=== PATIENT | male | born 1985 | race Hispanic/Latino ===

== ENCOUNTER → 2024-11-05 10:57 | Outpatient (CLI) | payer OTHER, SELFPAY ==
--- NOTE | 2024-11-05 11:02 | DI.RAD.S_ITS ---
PROCEDURE: XR CERVICAL SPINE 4V OR 5V INDICATIONS: neck pain, BL upper limb pain/paresthesia TECHNIQUE: 5 views of the cervical spine acquired. COMPARISON: [facility], MR, MR CERVICAL SPINE WO CON, 11/05/2024, 11:22. FINDINGS: Bones: No fractures or dislocations to the T1 level. Mild degenerative changes are seen. This is demonstrable by small vertebral body osteophytes and endplate sclerosis. Oblique images demonstrate no bony foraminal stenoses. Soft tissues: No prevertebral soft tissue swelling. IMPRESSION: Mild degenerative changes are seen. Dictated by: Esequiel Mckeon M.D. on 11/05/2024 at 22:02 Approved by: Esequiel Mckeon M.D. on 11/05/2024 at 22:04
--- NOTE | 2024-11-05 11:02 | DI.MRI.S_ITS ---
PROCEDURE: MR CERVICAL SPINE WO CON INDICATIONS: neck pain, BL upper limb pain/paresthesia TECHNIQUE: Noncontrast sagittal T1 spin echo and T2 fast spin echo, sagittal STIR, foraminal oblique sagittal T2 fast spin echo, and axial gradient echo or T2 fast spin echo through the cervical spine. COMPARISON: [facility], CR, XR CERVICAL SPINE 4V OR 5V, 11/05/2024, 11:09. FINDINGS: Image quality: Excellent. Alignment and Curvature: Straightening of the normal cervical lordosis. Bone Marrow: Marrow demonstrates normal overall signal. Spinal Cord: Visualized spinal cord has normal size and signal. No cerebellar tonsillar herniation. Paraspinous Soft Tissues: No paravertebral masses. Prevertebral soft tissues are normal in thickness. C2-C3: Normal appearance. C3-C4: Normal appearance. C4-C5: Disc desiccation and mild posterior disc osteophyte complex. Mild facet uncovertebral arthropathy. No significant central canal stenosis. Mild left and no right neural foraminal stenosis. C5-C6: Disc desiccation and mild posterior disc osteophyte complex. Facet uncovertebral arthropathy. No significant central canal stenosis. Mild left and no right neural foraminal stenosis. C6-C7: Facet uncovertebral arthropathy. No central canal stenosis. Mild left and no right neural foraminal stenosis. C7-T1: Normal appearance. IMPRESSION: Mild degenerative changes of the cervical spine as described above. Dictated by: Dilshad Rueda M.D. on 11/06/2024 at 8:50 Approved by: Dilshad Rueda M.D. on 11/06/2024 at 8:57
== END ==
LOC: MRI 10:58
PROVIDERS: Referring Provider Physical Medicine & Rehabilitation; Visit Provider Physical Medicine & Rehabilitation
DX: M47.812 Spondylosis without myelopathy or radiculopathy, cervical region (principal); M48.02 Spinal stenosis, cervical region; M54.2 Cervicalgia; M54.50 Low back pain, unspecified
CPT/HCPCS: 72050; 72141